=== PATIENT | female | born 1990 | race Hispanic/Latino ===

== ENCOUNTER 2017-07-13 03:55 | Emergency (ER) | payer OTHER ==
[~2017-07-13] VITALS: Ht 172.7 cm; Wt 86.4 kg
[~2017-07-13 03:55] MED LIST: HYDROcodone-APAP 5-325 PO
[2017-07-13 04:04] VITALS: BP 126/85; PULSE 98; RESP 16; O2SAT 98
--- NOTE | 2017-07-13 04:04 | ED.REPORT ---
HPI-General Illness Date of Service Jul 13, 2017 ED Provider: Dr. Mcmahan Pt is an about 4 wk generally healthy 27 y/o female presenting to the ED c/o URI-like symptoms onset today. Her chief complaint is shortness of breath. Pt c/o associated nasal congestion, dry cough, sore throat, ear pressure bilaterally, and sneezing. Pt denies abdominal pain, vomiting, production of phlegm. There is no history of asthma. Nursing Notes Stated Complaint: SHORTNESS OF BREATH Chief Complaint: Respiratory Complaints Nursing Notes Reviewed: Yes Allergies: Coded Allergies: No Known Allergies (Verified Allergy, Unknown, 10/29/15) Scheduled PRN ([HYDROcodone-APAP 5-325]) 1 TABLET TABLET 1-2 TABLET PO Q4H PRN PRN For Pain General Time Seen by MD: 04:04 Chief Complaint Multip medical complaints Hx Obtained From: Patient Arrived By: Walk-in Sudden in Onset?: No Onset Occurred: 9 - 12 hours ago Symptom Duration: Since onset Location: : Mouth Quality: Painful Severity: Current: Mild Severity: Maximum: Moderate Recent Healthcare: No recent hospitalization Past Medical History Past Medical History Notes: PCP: Hetal Denis Past Medical History Multiple pregnancies Past Surgical History None reported Smoking History Former Smoker Social History Alcohol Use: Denies alcohol use Other Social History: Occupation lives with and baby, second baby, first child is 5 years old Ambulatory Status Independent Review of Systems Full Review of Systems Constitutional: Reports: Malaise Ears / Nose / Throat: Reports: Nasal congestion Respiratory: Reports: Non-productive cough, Shortness of breath Allergy / Immune: Reports: Sneezing Complete sys rev & neg: except as marked. Physical Exam Vital Signs Vital Signs Date Time Temp Pulse Resp B/P Pulse Ox O2 Delivery O2 Flow Rate FiO2 07/13/17 05:11 36.7 99 18 114/69 98 Room Air 07/13/17 04:33 88 18 98 Room Air 07/13/17 04:04 36.6 98 16 126/85 98 Room Air Initial VS: Reviewed, Vital signs normal Head / Eyes: Atraumatic, Normocephalic, PERRL Neck: Supple, Full range of motion Cardiovascular: Regular rate & rhythm, Heart sounds normal, Intact distal pulses Abdomen / GI: Soft, Non-tender Extremities: Vascular intact, Neuro intact, No swelling Skin: Warm, Dry, No cyanosis Neurologic: Alert, Oriented, Nonfocal Psychiatric: Mood/affect normal, Behavior normal, Normal thought content General/Constitutional: Awake, Alert, No acute distress, Cooperative, Not toxic appearing Appearance / Presentation: Positive: Ill appearing/not toxic ENT: Atraumatic, Airway patent, Mucous membranes moist, Pharynx NL, No peritonsillar abscess, No pooling of secretions, No trismus, Tympanic membs NL, Ext aud canal NL, No facial swelling Nasal congestion present Respiratory / Chest: Atraumatic, Breath sounds = bilat, No respiratory distress , No rales, No rhonchi, No retractions, No stridor, No chest tenderness, No chest wall deformity, No crepitus Mild scattered wheezing Re-Eval/Medical Decision Med Decision/Clinical Course 27-year-old female currently in early presents with nasal congestion and a cough. Nose is congested and she is blowing at [place] despite entreaties to stop doing that. She is improved after Afrin here. Albuterol provided for mildly driven bronchospastic cough. Improved after treatment here. No abnormal findings and no hypoxemia suggest pneumonia. No indication for x-rays no indication for antibiotics. Discharged in stable condition. Time of Eval: 05:00 Patient Status: Condition improved, Moderate relief Re-Evaluation/Progress Note: Pt rechecked. Feels improved after meds. Informed pt of plan for discharge. Pt understands and agrees with plan for discharge. F/U instructions and RTER warnings given. All questions addressed. Counseled Regarding: Diagnosis, Need for follow-up, When/why to return to ED Discharge & Departure Primary Impression: Viral URI Additional Impressions: Reactive airway disease that is not asthma Nasal congestion Disposition: Home Discharge Condition All VS Reviewed: Yes Condition: Stable Patient Instructions: Oxymetazoline (Into the nose), Reactive Airways Disease ( ED), Upper Respiratory Infection (ED) Additional Instructions: You can use Afrin spray twice daily for the next few days. Do not persist using Afrin for more than three days. Albuterol two puffs every four hours as needed for cough and shortness of breath. Use your spacer always with the puffer. Follow-up with your doctor in the office. Return if any immediate issues. Referrals: Hetal Denis MD (PCP) Scribe Attestation Portions of this note were transcribed by Martin Pineda. I, Dr. Mcmahan personally performed the history, physical exam and medical decision-making; I reviewed and confirmed the accuracy of the information in the transcribed note. copies to: Hetal Denis MD, Christopher W MD Jul 13, 2017 04:04 MARTIN PINEDA Jul 13, 2017 04:20
[2017-07-13] MEDS ORDERED: Albuterol 2.5 mg/3 mL Inhalation Solution NEB ONE (04:15)
[2017-07-13] MEDS: Albuterol HFA 200 Puff Inhaler (Vent Pts Only) INHALATION PRN ×2 (04:30→04:33)
[2017-07-13 04:33] VITALS: PULSE 88; RESP 18; O2SAT 98
[2017-07-13 05:11] VITALS: BP 114/69; PULSE 99; RESP 18; O2SAT 98
== END 2017-07-13 05:00 | disposition home or self-care (01) ==
LOC: SED 03:55
DX: J06.9 Acute upper respiratory infection, unspecified (principal); J98.9 Respiratory disorder, unspecified; Z87.891 Personal history of nicotine dependence
CPT/HCPCS: 94640; 94664; 99284; J7613